=== PATIENT | male | born 1975 | race Two or more races ===

== ENCOUNTER 2021-02-27 11:59 | Emergency (ER) | payer OTHER ==
[2021-02-27 15:44] LABS: BASOPHIL 0.8 % (0-2); EOSINOPHIL 2.1 & (0-5); HGB 14.3 g/dl (13.2-18.0); LYMPHOCYTE 49.5 % (15-48); MCH 28.3 pg (25.0-31.0); MONOCYTE 8.2 % (0-12); MPV 8.2 fL (6.0-9.5); NEUTROPHIL 39.4 % (41-80); PLT 231 K/uL (150-400); RBC 5.06 M/uL (4.70-6.00); RDW 12.9 % (11.5-14.0); WBC 3.76 K/uL (4.0-10.5)
[2021-02-27] MEDS ORDERED: MOBIC15 MG PO (15:56)
[2021-02-27] MEDS ORDERED: NORVASC5 MG PO (15:56)
[2021-02-27 16:05] LABS: ALBUMIN 3.9 g/dL (3.4-5.0); BILIRUBIN - TOTAL 0.4 mg/dL (0.2-1.0); BUN/CREAT RATIO (CALC) 15.7 RATIO; CREATININE 0.89 mg/dL (0.67-1.17); GLOBULIN (CALCULATION) 3.4 g/dL; POTASSIUM 4.1 mmol/L (3.5-5.1); TOTAL PROTEIN 7.3 g/dL (6.4-8.2)
== END 2021-02-27 16:45 | disposition home or self-care (01) ==
LOC: FER 11:59
PROVIDERS: Internal Medicine
DX: M54.2 Cervicalgia (principal); I10 Essential (primary) hypertension; R00.1 Bradycardia, unspecified; Z98.890 Other specified postprocedural states
CPT/HCPCS: 36415; 72125; 80053; 84443; 84484; 85025; 93005